=== PATIENT | male | born 1970 | race Caucasian/White ===

== ENCOUNTER 2020-01-20 17:57 | Emergency (ER) | payer SELFPAY ==
[~2020-01-20] VITALS: Ht 175 cm; Wt 79.0 kg
[2020-01-20] MEDS ORDERED: fentaNYL INJECTION 100 MCG/2 ML AMP IVP ONE (18:30)
[2020-01-20] MEDS ORDERED: ONDANSETRON 4 MG/2 ML (SDV) Z0FRAN IVP ONE (18:30)
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
[2020-01-20] MEDS ORDERED: ONDA4TAB11 PO (20:30)
[2020-01-20] MEDS ORDERED: KETOROLAC 30 MG/ML VIAL IVP ONE (20:30)
[2020-01-20] MEDS ORDERED: cefTRIAXone FOR IV USE 1,000 MG in WATER (STERILE) FOR INJECTION 10 ML IV ONE (20:30)
[2020-01-21 21:04] VITALS: BP 143/95
== END 2020-01-20 21:02 | disposition home or self-care (01) ==
LOC: EDUNIT# 17:57 → ER 17:58
DX: S06.0X1A Concussion with loss of consciousness of 30 minutes or less, initial encounter (principal); L03.116 Cellulitis of left lower limb; L02.416 Cutaneous abscess of left lower limb; F17.290 Nicotine dependence, other tobacco product, uncomplicated; R40.2142 Coma scale, eyes open, spontaneous, at arrival to emergency department; R40.2252 Coma scale, best verbal response, oriented, at arrival to emergency department; R40.2362 Coma scale, best motor response, obeys commands, at arrival to emergency department; Y00.XXXA Assault by blunt object, initial encounter
CPT/HCPCS: 99283

== ENCOUNTER 2023-05-19 20:22 | Emergency (ER) | payer OTHER ==
[~2023-05-19] VITALS: Ht 173 cm; Wt 64.4 kg
[~2023-05-19 20:22] MED LIST: ONDA4TAB11 PO
[2023-05-19] MEDS ORDERED: CLIN-144 PO (21:54)
[2023-05-19] MEDS ORDERED: CLINDAMYCIN 150 MG (CLEOCIN) CAP PO STA (21:56)
[2023-05-19] MEDS ORDERED: POLY10DR OP (21:56)
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
[2023-05-19 22:05] VITALS: BP 112/74
[2023-05-22] MEDS ORDERED: DOXY100T31 PO (18:28)
== END 2023-05-19 22:07 | disposition home or self-care (01) ==
LOC: EDUNIT# 20:22 → ER 20:27
DX: S50.311A Abrasion of right elbow, initial encounter (principal); L03.113 Cellulitis of right upper limb; Z28.311 Partially vaccinated for COVID-19; V86.96XA Unspecified occupant of dirt bike or motor/cross bike injured in nontraffic accident, initial encounter; Y92.410 Unspecified street and highway as the place of occurrence of the external cause
CPT/HCPCS: 99283

== ENCOUNTER 2023-05-21 17:03 | Emergency (ER) | payer OTHER ==
[~2023-05-21] VITALS: Ht 172 cm; Wt 66.0 kg
[~2023-05-21 17:03] MED LIST changes: +CLIN-144 PO; +POLY10DR OP
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
[2023-05-21] MEDS ORDERED: TETANUS,DIPTH,PERTUSS P/F (BOOSTRIX) 0.5 ML VIAL IM ONE (18:15)
[2023-05-21] MEDS ORDERED: SULF1TAB38 PO (18:18)
[2023-05-21] MEDS ORDERED: MUPI15CR11 TP (18:18)
[2023-05-21 18:42] VITALS: BP 117/81
[2023-05-22] MEDS ORDERED: DOXY100T31 PO (18:28)
== END 2023-05-21 18:43 | disposition home or self-care (01) ==
LOC: EDUNIT# 17:03 → ER 17:06
DX: L03.211 Cellulitis of face (principal); F17.290 Nicotine dependence, other tobacco product, uncomplicated; Z88.0 Allergy status to penicillin; Z88.2 Allergy status to sulfonamides; Z23 Encounter for immunization
CPT/HCPCS: 90715; 99284